=== PATIENT | male | born 1960 | race Caucasian/White ===

== ENCOUNTER 2017-03-09 08:33 | Inpatient (IN) | payer OTHER ==
[2017-03-09] MEDS ORDERED: Iohexol 240 (50 ml) PO ONE (09:48)
[2017-03-09] MEDS ORDERED: Morphine 4 MG/ML VIAL ONE ×2 (10:01→13:07)
[2017-03-09] MEDS ORDERED: Iohexol 240 (50 ml) ONE (10:02)
--- NOTE | 2017-03-09 10:16 | ED PDOC ---
HPI: Abdomen Time Seen by Provider: 03/09/17 09:18 Chief Complaint (Nursing): Abdominal Pain Chief Complaint (Provider): Abdominal Pain History Per: Patient History/Exam Limitations: no limitations Onset/Duration Of Symptoms: Days (x1), Intermittent Episodes Current Symptoms Are (Timing): Still Present Pain Scale Rating Of: 5 Quality Of Discomfort: "Pain" Associated Symptoms: Nausea. denies: Fever, Vomiting, Diarrhea Last Bowel Movement: Yesterday Additional Complaint(s): Jerson De Dios is a 56 year old male, with a past medical history of colon CA, CHF , and HTN, who presents to the emergency department complaining of intermittent abdominal pain associated with nausea onset for x1 day. Patient drank some tea and began having stomach pain this morning. Patient has a history of scar tissue blockage and states the pain feels similar. He reports some ankle swelling for the past couple of weeks but denies any swelling at the moment. Last bowel movement was yesterday. He denies any vomit, diarrhea, and fever. No further medical complaints. Past Medical History Reviewed: Historical Data, Nursing Documentation, Vital Signs Vital Signs: Last Vital Signs Temp 97.7 F 03/09/17 16:30 Pulse 86 03/09/17 16:30 Resp 18 03/09/17 16:30 BP 149/99 H 03/09/17 16:30 Pulse Ox 95 03/09/17 16:30 - Medical History PMH: Anxiety, Arthritis, CHF, Depression, HTN, Malignancy (colon ca s/p surgical resection) Denies: Chronic Kidney Disease - Surgical History Surgical History: Hernia Repair (umbilical) Other surgeries: Shoulder surgery, colostomy, ileostomy resection. - Family History Family History: States: Other Other Family History: Colon CA - Social History Ex-Smoker (has not smoked in the last 12 months): Yes Alcohol: None Drugs: Denies - Home Medications Home Medications: Ambulatory Orders Medication Instructions Recorded Carvedilol [Coreg] 9.375 mg PO Q12H 03/09/17 Lisinopril [Zestril] 10 mg PO DAILY 03/09/17 - Allergies Allergies/Adverse Reactions: Allergies Allergy/AdvReac Type Severity Reaction Status Date / Time No Known Allergies Allergy Verified 03/09/17 09:00 Review of Systems ROS Statement: Except As Marked, All Systems Reviewed And Found Negative Constitutional: Negative for: Fever Gastrointestinal: Positive for: Nausea, Abdominal Pain. Negative for: Vomiting , Diarrhea Physical Exam - Reviewed Nursing Documentation Reviewed: Yes Vital Signs Reviewed: Yes - Physical Exam Appears: Positive for: Uncomfortable Head Exam: Positive for: ATRAUMATIC Skin: Positive for: Normal Color, Warm, Dry Eye Exam: Positive for: Normal appearance, EOMI Neck: Positive for: Painless ROM, Supple Cardiovascular/Chest: Positive for: Regular Rate, Rhythm Respiratory: Positive for: Normal Breath Sounds. Negative for: Respiratory Distress Gastrointestinal/Abdominal: Positive for: Soft, Tenderness (epigastric). Negative for: Distended Extremity: Positive for: Normal ROM. Negative for: Deformity, Swelling Neurologic/Psych: Positive for: Alert, Oriented - Laboratory Results Result Diagrams: 03/09/17 10:00 03/09/17 10:00 - ECG O2 Sat by Pulse Oximetry: 96 (RA) Pulse Ox Interpretation: Normal Medical Decision Making Medical Decision Making: Initial impression: abdominal pain. Differential includes but not limited to: small bowel obstruction, gastritis, pancreatitis, possible appendicitis. Initial Plan: --Abd Pelvis PO & IV Contrast [CT] --EKG --BNP --Comp Metabolic Panel --Lipase --CBC w/ differential --Omnipaque 240 50 ml PO ---Morphine 4 mg IVP --Zofran Inj 4 mg IVP --reevaluation 1235 Abd/Pelvis CT FINDINGS: LOWER THORAX: Minor linear atelectasis and or scarring changes both posterior sulci. Lung bases are otherwise clear without infiltrate. No effusion or basilar pneumothorax. . Heart size is within range of normal. No significant pericardial effusion. . LIVER: Liver is upper limits of normal in size measuring approximately 18.2 cm in CC dimension. Mild diffuse fatty hepatic infiltration. Portal and splenic veins are opacified. GALLBLADDER AND BILE DUCTS: The gallbladder is contracted likely due to nonfasting state. . The gallbladder wall is therefore on somewhat thickened though some mild infiltration changes in the pericholecystic fat noted. Rule out acalculous cholecystitis. Clinical correlation recommended. PANCREAS: The pancreas is slightly atrophic and fatty replaced. No obvious pancreatic masses collections or calcifications. SPLEEN: Spleen exhibits normal size and attenuation pattern without mass collection or calcification. . ADRENALS: There are no adrenal lesions. KIDNEYS AND URETERS: Kidneys demonstrate relatively symmetric nephrograms. . There is minor persistent dilatation of the proximal ureter within patulous and dilated distal left ureter which implants along the left lateral bladder wall. This is likely postoperative however clinical correlation with surgical history recommended. No evidence of nephrolithiasis. BLADDER: Urinary bladder is distended with persistent on contour deformity of along the left superolateral of bladder wall at the point of attachment of the distal left ureter. No evidence of intraluminal urinary bladder calculi. REPRODUCTIVE: Prostate gland measures approximately 3.7 cm in transverse dimension. Prostatic calcifications present. APPENDIX: Appendix not seen with any certainty on this study. BOWEL: Evaluation of the bowel is somewhat limited due to incomplete opacification. . The stomach is distended with oral contrast material and air. Several loops of small bowel exhibit on prominent caliber and prominent mucosal folds. . The no evidence of acute mechanical bowel obstruction however once again noted are changes of prior bowel resection with apparent anastomoses along segments of bowel in the right upper/mid abdomen mid abdomen and left lower quadrant at the the abdomen. Suture line also seen along sigmoid colon. Clinical correlation with surgical history. . There is a moderate amount of stool seen within the residual right colon an apparent and sigmoid colon consistent with fecal retention/ constipation. PERITONEUM: No free or loculated fluid collections. No evidence of free intraperitoneal air. Persistent but improved previously noted thickening of the rectus abdominis musculature more so on the right than left likely related to prior hernia repair. Previously noted subcutaneous air and fluid resolved. Small fat containing right inguinal hernia. LYMPH NODES: No significant lymphadenopathy. Lymph nodes. VASCULATURE: Unremarkable. No aortic aneurysm. BONES: No acute compression fractures no retropulsed fragments. OTHER FINDINGS: None. IMPRESSION: There is mild dilatation of the proximal left ureter and more patulous dilatation of the distal left ureter which at inserts along the left superolateral margin of the urinary bladder likely postsurgical in origin however clinical correlation recommended. Extensive postsurgical changes involving the bowel most of which appear involved both the large and small bowel. Clinical correlation with surgical history. There is also mild dilatation of several loops of small bowel in the upper abdomen. In addition, several of these loops of bowel exhibit mild on thickened mucosal folds appear clinical correlation recommended to exclude nonspecific enteritis. However no evidence of acute mechanical bowel obstruction however there appears to be mild constipation. Interval improvement previously noted postoperative changes involving the anterior abdominal wall. The gallbladder is contracted and which is likely due to nonfasting state however there also appears to be mild vague infiltration changes in the pericholecystic fat. Rule out a calculus cholecystitis. 1412 Abdomen US FINDINGS: LIVER: Liver measure approximately 17.1 cm in CC dimension. Liver demonstrates smooth contour and normal echotexture. No masses or collections seen on images presented. . No mass. No intrahepatic bile duct dilatation. Portal vein demonstrates hepatopetal flow No ascites. GALLBLADDER: Multiple intraluminal gallbladder calculi. . No pericholecystic fluid collections or sonographic Johns sign. COMMON BILE DUCT: Common bile duct is dilated measuring approximately 8.9 mm. No stones. No dilatation. PANCREAS: Pancreas is not visualized due to body habitus and bowel gas. RIGHT KIDNEY: Right kidney measures approximately 12.9 x 5.2 x 6.2 cm in length. Normal echogenicity. No calculus, mass, or hydronephrosis. AORTA: No aneurysmal dilatation. IVC: Unremarkable. OTHER FINDINGS: None . IMPRESSION: Cholelithiasis. Dilated common bile duct. No evidence of sonographic Johns sign. 14:40 -Spoke with Dr. Mckeon. Patient is still in severe pain. I reviewed US findings. Patient will be admitted to the hospital under Dr. Mckeon for intractable abdominal pain, refractory pain to the medications in ER. Gallstones and common bile duct requiring inpatient GI evaluation. Dr. Mckeon requested Dr. Sharma. [address] Sharma who recommends IV abx and will see patient tomorrow. Scribe Attestation: Documented by Shahzad Acosta, acting as a scribe for Georgina Palma MD Provider Scribe Attestation: All medical record entries made by the Scribe were at my direction and personally dictated by me. I have reviewed the chart and agree that the record accurately reflects my personal performance of the history, physical exam, medical decision making, and the department course for this patient. I have also personally directed, reviewed, and agree with the discharge instructions and disposition. Disposition - Clinical Impression Clinical Impression: Abdominal pain, Cholelithiasis, Intractable abdominal pain - Patient ED Disposition Is Patient to be Admitted: Yes Discussed With Dr.: Lenny Mckeon Doctor Will See Patient In The: Hospital Counseled Patient/Family Regarding: Studies Performed, Diagnosis - Disposition Disposition Time: 14:30 Condition: FAIR - Pt Status Changed To: Hospital Disposition Of: Inpatient - Admit Certification Admit to Inpatient:: After my assessment, the patient will require hospitalization for at least two midnights. This is because of the severity of symptoms shown, intensity of services needed, and/or the medical risk in this patient being treated as an outpatient. - POA Present On Arrival: None
[2017-03-09 10:28] LABS: ALB/GLOB RATIO 1.2 (1.0-2.1); BILIRUBIN,TOTAL 1.2 mg/dl (0.2-1.3); CARBON DIOXIDE 27 mmol/L (22-30); CHLORIDE 102 mmol/L (98-107); GFR AFRICAN-AMERICAN > 60; GLUCOSE,RANDOM 134 mg/dL (75-110); LIPASE 53 U/L (23-300); SODIUM 136 mmol/l (132-148); TOTAL PROTEIN 7.6 G/DL (6.3-8.2)
[2017-03-09 10:38] LABS: BASO # 0.1 K/uL (0.0-0.2); BASO % 0.8 % (0.0-2.0); EOS # 0.1 K/uL (0.0-0.7); EOS % 1.9 % (0.0-4.0); HEMATOCRIT 48.7 % (35.0-51.0); LYMPH # 0.6 K/uL (1.0-4.3); LYMPH % 9.2 % (20.0-40.0); MEAN CELL VOLUME 90.8 fl (80.0-94.0); MEAN CORPUSCULAR HEMOGLOBIN 30.8 pg (27.0-31.0); MEAN CORPUSCULAR HGB CONC 33.9 g/dL (33.0-37.0); MEAN PLATELET VOLUME 9.1 fl (7.2-11.7); MONO # 0.9 K/uL (0.0-0.8); MONO % 13.8 % (0.0-10.0); NEUT % 74.3 % (50.0-75.0); NRBC % 0.1 % (0.0-0.0); PLATELET COUNT 156 K/uL (130-400); RED CELL DISTRIBUTION WIDTH 14.8 % (11.5-14.5); WHITE BLOOD COUNT 6.8 K/uL (4.8-10.8)
[2017-03-09 10:40] LABS: ALKALINE PHOSPHATASE 107 U/L (38-126); ALT/SGPT 71 U/L (21-72); AST/SGOT 59 U/L (17-59); BLOOD UREA NITROGEN 12 mg/dl (9-20); POTASSIUM 3.8 MMOL/L (3.6-5.0)
[2017-03-09] MEDS ORDERED: Iohexol 300 100 ML IJ ONE (11:15)
[2017-03-09 11:46] LABS: EOSINOPHIL 2 % (0-7); NEUTROPHIL 75 % (42-75); REACTIVE LYMPHOCYTES 3 % (0-0); TOTAL CELLS COUNTED 100
--- NOTE | 2017-03-09 12:37 | CT ---
PROCEDURE: CT scan abdomen pelvis dated 03/09/2017. HISTORY: Abdominal pain. COMPARISON: Comparison made with prior CT scan abdomen and pelvis 10/23/2015. TECHNIQUE: Contiguous axial images of the abdomen and pelvis performed following oral and intravenous injection of approximately 92 cc of Omnipaque 300 contrast material. . Coronal and Sagittal reformats generated. Radiation dose: Total exam DLP = 1098.49 mGy-cm. This CT exam was performed using one or more of the following dose reduction techniques: Automated exposure control, adjustment of the mA and/or kV according to patient size, and/or use of iterative reconstruction technique. FINDINGS: LOWER THORAX: Minor linear atelectasis and or scarring changes both posterior sulci. Lung bases are otherwise clear without infiltrate. No effusion or basilar pneumothorax. . Heart size is within range of normal. No significant pericardial effusion. . LIVER: Liver is upper limits of normal in size measuring approximately 18.2 cm in CC dimension. Mild diffuse fatty hepatic infiltration. Portal and splenic veins are opacified. GALLBLADDER AND BILE DUCTS: The gallbladder is contracted likely due to nonfasting state. . The gallbladder wall is therefore on somewhat thickened though some mild infiltration changes in the pericholecystic fat noted. Rule out acalculous cholecystitis. Clinical correlation recommended. PANCREAS: The pancreas is slightly atrophic and fatty replaced. No obvious pancreatic masses collections or calcifications. SPLEEN: Spleen exhibits normal size and attenuation pattern without mass collection or calcification. . ADRENALS: There are no adrenal lesions. KIDNEYS AND URETERS: Kidneys demonstrate relatively symmetric nephrograms. . There is minor persistent dilatation of the proximal ureter within patulous and dilated distal left ureter which implants along the left lateral bladder wall. This is likely postoperative however clinical correlation with surgical history recommended. No evidence of nephrolithiasis. BLADDER: Urinary bladder is distended with persistent on contour deformity of along the left superolateral of bladder wall at the point of attachment of the distal left ureter. No evidence of intraluminal urinary bladder calculi. REPRODUCTIVE: Prostate gland measures approximately 3.7 cm in transverse dimension. Prostatic calcifications present. APPENDIX: Appendix not seen with any certainty on this study. BOWEL: Evaluation of the bowel is somewhat limited due to incomplete opacification. . The stomach is distended with oral contrast material and air. Several loops of small bowel exhibit on prominent caliber and prominent mucosal folds. . The no evidence of acute mechanical bowel obstruction however once again noted are changes of prior bowel resection with apparent anastomoses along segments of bowel in the right upper/mid abdomen mid abdomen and left lower quadrant at the the abdomen. Suture line also seen along sigmoid colon. Clinical correlation with surgical history. . There is a moderate amount of stool seen within the residual right colon an apparent and sigmoid colon consistent with fecal retention/ constipation. PERITONEUM: No free or loculated fluid collections. No evidence of free intraperitoneal air. Persistent but improved previously noted thickening of the rectus abdominis musculature more so on the right than left likely related to prior hernia repair. Previously noted subcutaneous air and fluid resolved. Small fat containing right inguinal hernia. LYMPH NODES: No significant lymphadenopathy. Lymph nodes. VASCULATURE: Unremarkable. No aortic aneurysm. BONES: No acute compression fractures no retropulsed fragments. OTHER FINDINGS: None. IMPRESSION: There is mild dilatation of the proximal left ureter and more patulous dilatation of the distal left ureter which at inserts along the left superolateral margin of the urinary bladder likely postsurgical in origin however clinical correlation recommended. Extensive postsurgical changes involving the bowel most of which appear involved both the large and small bowel. Clinical correlation with surgical history. There is also mild dilatation of several loops of small bowel in the upper abdomen. In addition, several of these loops of bowel exhibit mild on thickened mucosal folds appear clinical correlation recommended to exclude nonspecific enteritis. However no evidence of acute mechanical bowel obstruction however there appears to be mild constipation. Interval improvement previously noted postoperative changes involving the anterior abdominal wall. The gallbladder is contracted and which is likely due to nonfasting state however there also appears to be mild vague infiltration changes in the pericholecystic fat. Rule out a calculus cholecystitis.
[2017-03-09] MEDS ORDERED: Morphine 4 MG/ML VIAL IVP ONE (12:54)
[2017-03-09] MEDS ORDERED: Sodium Chloride 0.9% 1,000 ML IV STA (13:07)
--- NOTE | 2017-03-09 14:14 | US ---
HISTORY: Abdominal l pain abnormal CT findings COMPARISON: None. TECHNIQUE: Sonographic evaluation of the right upper quadrant of the abdomen. FINDINGS: LIVER: Liver measure approximately 17.1 cm in CC dimension. Liver demonstrates smooth contour and normal echotexture. No masses or collections seen on images presented. . No mass. No intrahepatic bile duct dilatation. Portal vein demonstrates hepatopetal flow No ascites. GALLBLADDER: Multiple intraluminal gallbladder calculi. . No pericholecystic fluid collections or sonographic Johns sign. COMMON BILE DUCT: Common bile duct is dilated measuring approximately 8.9 mm. No stones. No dilatation. PANCREAS: Pancreas is not visualized due to body habitus and bowel gas. RIGHT KIDNEY: Right kidney measures approximately 12.9 x 5.2 x 6.2 cm in length. Normal echogenicity. No calculus, mass, or hydronephrosis. AORTA: No aneurysmal dilatation. IVC: Unremarkable. OTHER FINDINGS: None . IMPRESSION: Cholelithiasis. Dilated common bile duct. No evidence of sonographic Johns sign.
[2017-03-09] MEDS ORDERED: HYDROmorphone 0.5 mg/0.5 ml ISec ONE (14:50)
[2017-03-09] MEDS ORDERED: HYDROmorphone 0.5 mg/0.5 ml ISec IVP STA (14:55)
[2017-03-09 15:27] VITALS: RESP 18
[2017-03-09] MEDS ORDERED: Piperacillin/Tazobact 3.375 GM in Sodium Chloride 0.9% 100 ML IVPB STA (16:15)
[2017-03-09 17:24] VITALS: BP 149/99; PULSE 86; TEMP 97.7
--- NOTE | 2017-03-10 00:14 | CARD ---
APPROVED REPORT EKG Measurement Heart [id number] <Conclusion> Normal sinus rhythm Normal ECG
[2017-03-12 10:07] VITALS: O2SAT 96
== END 2017-03-09 17:35 | disposition left against medical advice (07) | DRG 446 ==
LOC: H.ER 08:33 → H.ERHOLD 14:34 → H.MEDSURG1 16:20
PROVIDERS: ADMIT Family Medicine Geriatric Medicine; ATTEND Family Medicine Geriatric Medicine
DX: K80.20 Calculus of gallbladder without cholecystitis without obstruction (principal); I11.0 Hypertensive heart disease with heart failure; I50.9 Heart failure, unspecified; Z85.038 Personal history of other malignant neoplasm of large intestine; K83.8 Other specified diseases of biliary tract; F41.9 Anxiety disorder, unspecified; M19.90 Unspecified osteoarthritis, unspecified site; F32.9 Major depressive disorder, single episode, unspecified; Z93.3 Colostomy status

== ENCOUNTER 2017-07-05 18:35 | Emergency (ER) | payer OTHER ==
[2017-07-05 18:43] VITALS: BP 147/86; PULSE 85; RESP 18; TEMP 98.3; O2SAT 96
[2017-07-05] MEDS ORDERED: Tdap Vaccine 0.5 ml Vial (10-64 yrs) IM ONE ×2 (19:02→20:49)
--- NOTE | 2017-07-05 19:48 | ED PDOC ---
HPI: Trauma/Fall - HPI Time Seen by Provider: 07/05/17 18:52 Chief Complaint (Nursing): Trauma Chief Complaint (Provider): Trauma History Per: Patient History/Exam Limitations: no limitations Additional Complaint(s): 57 y/o male presents to the ED for evaluation of head injury at about 1430 today. He was in his home sitting on a weight bench working out , the back of the bench broke and he fell down and hit his head onto the floor and equipment behind him. He is not sure but might had loss of consciousness. He said that he continued to work out and when he showered he realized a lot of blood from wound. His mother saw it and decided to come to ED. Patient doesn't recall when he took his first tetanus vaccine. Denies nausea, vomiting, blurry vision, weakness, or any further medical complaints. PMD: Dr. Lenny Mckeon Past Medical History Reviewed: Historical Data, Nursing Documentation, Vital Signs Vital Signs: Last Vital Signs Temp 98.3 F 07/05/17 18:39 Pulse 85 07/05/17 18:39 Resp 18 07/05/17 18:39 BP 147/86 07/05/17 18:39 Pulse Ox 96 07/05/17 18:39 - Medical History PMH: Anxiety, Arthritis, CHF, Depression, HTN, Malignancy (colon ca s/p surgical resection) Denies: Chronic Kidney Disease - Surgical History Surgical History: Hernia Repair (umbilical) - Family History Family History: States: Hypertension - Social History Current smoker - smoking cessation education provided: No Alcohol: Social Drugs: Denies - Home Medications Home Medications: Ambulatory Orders Medication Instructions Recorded Carvedilol [Coreg] 9.375 mg PO Q12H 03/09/17 Lisinopril [Zestril] 10 mg PO DAILY 03/09/17 - Allergies Allergies/Adverse Reactions: Allergies Allergy/AdvReac Type Severity Reaction Status Date / Time No Known Allergies Allergy Verified 07/05/17 18:38 Review of Systems ROS Statement: Except As Marked, All Systems Reviewed And Found Negative (As per HPI, otherwise negative) Constitutional: Negative for: Fever, Weakness Eyes: Negative for: Other (blurry vision) Musculoskeletal: Negative for: Neck Pain Skin: Positive for: Lesions Neurological: Negative for: Weakness Physical Exam - Reviewed Nursing Documentation Reviewed: Yes Vital Signs Reviewed: Yes - Physical Exam Appears: Positive for: No Acute Distress Head Exam: Positive for: ATRAUMATIC, NORMOCEPHALIC. Negative for: NORMAL INSPECTION (1cm gaping stellate laceration on left upper parietal scalp; no hematoma noted) Skin: Positive for: Warm, Dry Eye Exam: Positive for: EOMI, PERRL Neck: Positive for: Painless ROM, Supple Extremity: Positive for: Normal ROM. Negative for: Deformity Neurologic/Psych: Positive for: Alert, Oriented (x3). Negative for: Motor/ Sensory Deficits - ECG O2 Sat by Pulse Oximetry: 96 (RA) Pulse Ox Interpretation: Normal Medical Decision Making Medical Decision Making: Time: 19:01 Initial Impression: Head injury with loss of consciousness and laceration Plan: CT head w/o contrast Tetanus 0.5ml IM Acetaminophen 975mg PO Reevaluation Time: 20:[address] FINDINGS: Brain: Appearance of partially empty sella. No hemorrhage. No significant white matter disease. No edema. Ventricles: No hydrocephalus. Bones: Skull is intact. Soft tissues: Left scalp skin ian. Sinuses: No acute sinusitis. Mastoid air cells: No mastoid effusion. IMPRESSION: No CT evidence of acute intracranial hemorrhage. Please see details/findings as above. Scribe Attestation: Documented by Jenn Fan acting as a scribe for Irena Davila MD MD Scribe Attestation: All medical record entries made by the Scribe were at my direction and personally dictated by me. I have reviewed the chart and agree that the record accurately reflects my personal performance of the history, physical exam, medical decision making, and the department course for this patient. I have also personally directed, reviewed, and agree with the discharge instructions and disposition. Procedures - Laceration/Wound Repair Left Posterior Lateral Parietal Wound Length (cm): 1 Wound's Depth, Shape: superficial, stellate Wound Explored: clean Irrigated w/ Saline (ccs): 250 Betadine Prep?: Yes Wound Repaired With: Ian (x2) Wound Complexity: Simple Disposition - Clinical Impression Clinical Impression: Concussion, Scalp laceration - Disposition Disposition: Routine/Home Disposition Time: 20:00 Condition: IMPROVED Additional Instructions: FOLLOW UP WITH YOUR DOCTOR OR RETURN TO ER IN 10-14 DAYS TO HAVE IAN REMOVED. Instructions: Concussion, Adult (DC), Laceration Repair With [place] (DC) Forms: [facility] ED School/Work Excuse
--- NOTE | 2017-07-05 20:22 | CT ---
EXAM: CT Head Without Intravenous Contrast CLINICAL HISTORY: 57 years old, male; Injury or trauma; Injury Head injury-loc; Initial encounter; Blunt trauma (contusions or hematomas); Prior surgery; Surgery date: 6+ months; Surgery type: Superficial injury. Slatples on the left side; Additional info: Head injury loc TECHNIQUE: Axial computed tomography images of the head/brain without intravenous contrast. All CT scans at this facility use one or more dose reduction techniques, viz.: automated exposure control; ma/kV adjustment per patient size (including targeted exams where dose is matched to indication; i.e. head); or iterative reconstruction technique. Coronal and sagittal reformatted images were created and reviewed. COMPARISON: No relevant prior studies available. FINDINGS: Brain: Appearance of partially empty sella. No hemorrhage. No significant white matter disease. No edema. Ventricles: No hydrocephalus. Bones: Skull is intact. Soft tissues: Left scalp skin fernanda. Sinuses: No acute sinusitis. Mastoid air cells: No mastoid effusion. IMPRESSION: No CT evidence of acute intracranial hemorrhage. Please see details/findings as above.
== END 2017-07-05 21:09 | disposition home or self-care (01) ==
LOC: H.ER 18:35
DX: S06.0X0A Concussion without loss of consciousness, initial encounter (principal); S01.01XA Laceration without foreign body of scalp, initial encounter; I11.0 Hypertensive heart disease with heart failure; Z86.59 Personal history of other mental and behavioral disorders; Z85.038 Personal history of other malignant neoplasm of large intestine; W19.XXXA Unspecified fall, initial encounter; Z23 Encounter for immunization